=== PATIENT | female | born 1960 | race Caucasian/White ===

== ENCOUNTER 2018-01-23 12:49 | Inpatient (IN) | payer MEDICAID ==
[2018-01-23] MEDS ORDERED: Lactated Ringers 1,000 ML IV SCH (14:00)
[2018-01-23] MEDS ORDERED: Sodium Chloride 0.9% 10 ML Syringe FLUSH PRN (14:00)
[2018-01-23] MEDS ORDERED: Ondansetron 4 MG/2 ML SDV IVPUSH ONE (14:01)
[2018-01-23] MEDS ORDERED: fentaNYL 100 MCG/2 ML SDV IVPUSH ONE (14:01)
--- NOTE | 2018-01-23 14:04 | EDM.PDOC ---
ED HPI GENERAL MEDICAL PROBLEM - General Chief Complaint: Gastrointestinal Problem Stated Complaint: vomiting back PAIN Time Seen by Provider: 01/23/18 13:47 Source of Information: Reports: Patient, Family, RN Notes Reviewed History Limitations: Reports: No Limitations - History of Present Illness INITIAL COMMENTS - FREE TEXT/NARRATIVE: 57-year-old female presents to the emergency department day complaint of nausea vomiting and diarrhea, states she's been ill for about 2 weeks initially started with diarrhea multiple loose stools per day which has not improved vomiting started over the last couple of days denies any fevers shortness of breath or chest pain has not taken anything denies any travel or new foods - Related Data Allergies Allergy/AdvReac Type Severity Reaction Status Date / Time iodine Allergy Cannot Verified 02/09/14 14:02 Remember venom-honey bee Allergy Anaphylactic Verified 02/09/14 14:02 [bee venom (honey bee)] Shock horse fly Allergy Swelling Uncoded 01/23/18 13:07 leechs Allergy Swelling Uncoded 01/23/18 13:07 Home Meds: Home Meds Cholecalciferol (Vitamin D3) [Vitamin D] 2,000 unit PO DAILY 02/09/14 [History] Gabapentin 300 mg PO DAILY 02/09/14 [History] Ibuprofen 600 mg PO DAILY PRN 02/09/14 [History] Levothyroxine [Synthroid] 100 mg PO DAILY 02/09/14 [History] Lisinopril 40 mg PO DAILY 02/09/14 [History] atorvaSTATin [Lipitor] 40 mg PO BEDTIME 02/09/14 [History] DULoxetine HCl [Duloxetine HCl] 1 tab PO DAILY 01/23/18 [History] EPINEPHrine [Epinephrine] 1 injection SQ DAILY 01/23/18 [History] Naproxen 1 tab PO DAILY 01/23/18 [History] Triamterene/Hydrochlorothiazid [Triamterene-HCTZ 37.5-25 MG] 1 tab PO DAILY [History] predniSONE [Prednisone] 20 mg PO DAILY PRN 01/23/18 [History] traZODone HCl [Trazodone HCl] 1 tab PO DAILY 01/23/18 [History] Past Medical History Cardiovascular History: Reports: High Cholesterol, Hypertension Gastrointestinal History: Reports: Irritable Bowel Syndrome Musculoskeletal History: Reports: Fracture Neurological History: Reports: Other (See Below) Other Neuro History: restless leg syndrome, Psychiatric History: Reports: Dementia Endocrine/Metabolic History: Reports: Hypothyroidism Immunologic History: Reports: Other (See Below) Other Immunologic History: mark - Infectious Disease History Infectious Disease History: Reports: Chicken Pox - Past Surgical History HEENT Surgical History: Reports: Eye Surgery, LASIK GI Surgical History: Reports: Colonoscopy Female Surgical History: Reports: Section, Hysterectomy Social & Family History - Tobacco Use Smoking Status *Q: Current Every Day Smoker Years of Tobacco use: 40 Packs/Tins Daily: 1 - Caffeine Use Caffeine Use: Reports: Coffee - Recreational Drug Use Recreational Drug Use: No ED ROS GENERAL - Review of Systems Review Of Systems: See Below Constitutional: Reports: Fatigue. Denies: Fever HEENT: Reports: No Symptoms Respiratory: Reports: No Symptoms Cardiovascular: Reports: No Symptoms GI/Abdominal: Reports: Abdominal Pain, Diarrhea, Nausea, Vomiting : Reports: No Symptoms Musculoskeletal: Reports: No Symptoms Skin: Reports: No Symptoms Neurological: Reports: No Symptoms ED EXAM, GI/ABD - Physical Exam Exam: See Below Text/Narrative:: General: Female, not in any distress, alert and oriented x3 HEENT: head is atraumatic normocephalic, eyes pupils equal round reactive to light, sclera clear no conjunctivitis appreciated. Ears tympanic membranes clear and cowart landmarks and light reflex are present bilaterally canals are clear. Nose no septal deviation, nares are clear, no blood present. Mouth mucosa is moist and pink no erythema or exudate noted in soft palate, tongue is midline uvula is midline, dentition is intact. Neck: Supple no thyromegaly no tracheal deviation. Nodes: Cervical nodes subclavicular nodes nontender no palpable lymphadenopathy noted. Lungs: clear to auscultation bilaterally with symmetrical respirations, no adventitious noise appreciated. CV: Regular rate and rhythm S1 and S2 appreciated no murmurs rubs or gallops noted. Abdomen: Soft, generalized tenderness to palpation, no palpable masses or organomegaly appreciated, no distention no guarding bowel sounds are present, surgical scar is clean dry and intact. Neuro: Cranial nerves II through XII grossly intact Skin: Warm and dry, intact Extremities: No lower extremity edema appreciated, pedal pulse is +2. Course - Vital Signs Last Recorded V/S: Last Vital Signs Temp 98.2 F 01/23/18 13:42 Pulse 92 01/23/18 13:42 Resp 16 01/23/18 13:42 BP 147/89 H 01/23/18 13:42 Pulse Ox 100 01/23/18 13:42 - Orders/Labs/Meds Orders: Active Orders 24 hr Category Date Time Status Peripheral IV Care [RC] . DIRECTED Care 01/23/18 14:01 Active CLOSTRIDIUM DIFFICILE BY PCR [RM] Stat Lab 01/23/18 12:54 Ordered UA W/MICROSCOPIC [URIN] Urgent Lab 01/23/18 12:54 Ordered WBC, STOOL [OP] Stat Lab 01/23/18 12:54 Ordered Lactated Ringers [Ringers, Lactated] 1,000 ml Med 01/23/18 14:00 Active IV ASDIRECTED Sodium Chloride 0.9% [Saline Flush] Med 01/23/18 14:00 Active 10 ml FLUSH ASDIRECTED PRN Peripheral IV Insertion Adult [OM.PC] Urgent Oth 01/23/18 14:00 Ordered Medication Orders Lactated Ringer's (Ringers, Lactated) 1,000 mls @ 999 mls/hr IV ASDIRECTED KVNG Sodium Chloride (Saline Flush) 10 ml FLUSH ASDIRECTED PRN PRN Reason: Keep Vein Open Labs: Laboratory Tests 01/23/18 01/23/18 01/23/18 Range/Units 14:00 14:00 14:00 WBC 12.6 H (4.5-11.0) K/uL RBC 4.66 (3.30-5.50) M/uL Hgb 14.5 (12.0-15.0) g/dL Hct 41.6 (36.0-48.0) % MCV 89 (80-98) fL MCH 31 (27-31) pg MCHC 35 (32-36) % Plt Count 275 (150-400) K/uL Neut % (Auto) 75 H (36-66) % Lymph % (Auto) 17 L (24-44) % [place] % (Auto) 8 H (2-6) % Eos % (Auto) 0 L (2-4) % Baso % (Auto) 1 (0-1) % Sodium 136 L (140-148) mmol/L Potassium 4.0 (3.6-5.2) mmol/L Chloride 98 L (100-108) mmol/L Carbon Dioxide 26 (21-32) mmol/L Anion Gap 16.0 H (5.0-14.0) mmol/L BUN 13 D (7-18) mg/dL Creatinine 0.9 (0.6-1.0) mg/dL Est Cr Clr Drug Dosing 52.67 mL/min Estimated GFR (MDRD) > 60 (>60) Glucose 101 (74-106) mg/dL Lactic Acid 1.3 (0.4-2.0) mmol/L Calcium 8.8 (8.5-10.1) mg/dL Total Bilirubin 0.4 (0.2-1.0) mg/dL AST 28 (15-37) U/L ALT 26 (12-78) U/L Alkaline Phosphatase 70 (46-116) U/L Total Protein 7.2 (6.4-8.2) g/dL Albumin 3.5 (3.4-5.0) g/dL Globulin 3.7 H (2.3-3.5) g/dL Albumin/Globulin Ratio 1.0 L (1.2-2.2) Meds: Medications Generic Name Dose Route Start Last Admin Trade Name Freq PRN Reason Stop Dose Admin Lactated Ringer's 1,000 mls @ 999 mls/hr 01/23/18 14:00 Ringers, Lactated IV ASDIRECTED KVNG Sodium Chloride 10 ml 01/23/18 14:00 Saline Flush FLUSH ASDIRECTED PRN Keep Vein Open Discontinued Medications Generic Name Dose Route Start Last Admin Trade Name Freq PRN Reason Stop Dose Admin Fentanyl 50 mcg 01/23/18 14:01 Sublimaze IVPUSH 01/23/18 14:02 ONETIME ONE Ondansetron HCl 4 mg 01/23/18 14:01 Zofran IVPUSH 01/23/18 14:02 ONETIME ONE Departure - Departure Time of Disposition: 15:03 Disposition: Admitted As Inpatient 67 Condition: Good Clinical Impression: Appendicitis - Discharge Information Referrals: Tamera Dang MD [Primary Care Provider] - Forms: ED Department Discharge - My Orders Last 24 Hours: My Active Orders 01/23/18 12:54 CLOSTRIDIUM DIFFICILE BY PCR [RM] Stat UA W/MICROSCOPIC [URIN] Urgent WBC, STOOL [OP] Stat 01/23/18 14:00 Lactated Ringers [Ringers, Lactated] 1,000 ml IV ASDIRECTED Sodium Chloride 0.9% [Saline Flush] 10 ml FLUSH ASDIRECTED PRN Peripheral IV Insertion Adult [OM.PC] Urgent 01/23/18 14:01 Peripheral IV Care [RC] . DIRECTED - Assessment/Plan Last 24 Hours: My Active Orders 01/23/18 12:54 CLOSTRIDIUM DIFFICILE BY PCR [RM] Stat UA W/MICROSCOPIC [URIN] Urgent WBC, STOOL [OP] Stat 01/23/18 14:00 Lactated Ringers [Ringers, Lactated] 1,000 ml IV ASDIRECTED Sodium Chloride 0.9% [Saline Flush] 10 ml FLUSH ASDIRECTED PRN Peripheral IV Insertion Adult [OM.PC] Urgent 01/23/18 14:01 Peripheral IV Care [RC] . DIRECTED Plan: Assessment Acuity = acute Site and laterality = acute appendicitis Etiology = unclear etiology Manifestations = nausea vomiting, diarrhea Location of injury = Home Lab values = WBC elevated at 12.6 consistent with leukocytosis, CMP unremarkable , lactic acid within normal limits CT scan describes acute appendicitis above Plan Called discussed case with Dr. Brayan Baumann general surgery kindly agreed, and evaluate the patient emergency department for surgical intervention This note was dictated using [employer] voice recognition software please call with any questions on syntax or grammar.
--- NOTE | 2018-01-23 14:57 | CT ---
Abdomen pelvis CT. History: Generalized abdominal pain. Technique: Unenhanced axial images were obtained from the lung bases extending through the abdomen an d pelvis. Coronal images were reconstructed. Auto dosage reduction and iterative reconstruction techn iques were employed. Comparison: 2013. Findings: Limited evaluation of the lower lung chen demonstrates no abnormalities. The study is limited due to the lack of contrast. The appendix is demonstrated in a retrocecal location extending superiorly within the right paracolic gutter terminating at the inferior margin of the liver. The appendix is dilated. There is wall thick ening. There is induration of the fat adjacent to the appendix. The findings are consistent with acut e appendicitis. There is no evidence for perforation or abscess. The liver, gallbladder, pancreas, spleen are unremarkable. The adrenal glands are normal in size. The kidneys demonstrate no hydronephrosis. There are scattered colonic diverticula. There is no wall thi ckening or inflammation. There are no skeletal lesions. Impression: 1. Acute inflammation of a retrocecal appendix. No evidence of perforation or abscess.
[2018-01-23] MEDS ORDERED: Ampicillin/Sulbactam Na 3 GM in Sodium Chloride 0.9% 100 ML IV ONE ×2 (15:12→16:00)
[2018-01-23] MEDS ORDERED: Bupivacaine 0.5%/EPINEPHrine 1:200,000 50 ML MDV ONE (15:25)
[2018-01-23] MEDS ORDERED: Glycopyrrolate 0.2 MG/ML 5 ML MDV ONE (15:57)
[2018-01-23] MEDS ORDERED: Dexamethasone 4 MG/ML SDV ONE (15:57)
[2018-01-23] MEDS ORDERED: Ondansetron 4 MG/2 ML SDV ONE (15:57)
[2018-01-23] MEDS ORDERED: Neostigmine Methylsulfate 1 MG/ML 5 ML Syringe ONE (15:57)
[2018-01-23] MEDS ORDERED: Rocuronium 50 MG/5 ML Vial ONE (15:57)
[2018-01-23] MEDS ORDERED: Propofol 200 MG/20 ML SDV ONE (15:57)
[2018-01-23] MEDS ORDERED: Succinylcholine 200 MG/10 ML MDV ONE (15:57)
[2018-01-23] MEDS ORDERED: Ropivacaine 25 ML, Dexamethasone 8 MG, EPINEPHrine 0.4 MG, Sodium Chloride 0.9% 52.6 ML NERVRT SCH ×4 (16:00)
[2018-01-23] MEDS ORDERED: Ketamine 500 MG/5 ML MDV IV SCH (16:00)
[2018-01-23] MEDS ORDERED: fentaNYL 250 MCG/5 ML SDV ONE ×2 (16:01→16:31)
[2018-01-23] MEDS ORDERED: HYDROmorphone/Normal Saline 15 MG/30 ML PCA IV PRN (16:04)
[2018-01-23] MEDS ORDERED: Naloxone 0.4 MG/ML SDV IV PRN (16:04)
[2018-01-23] MEDS ORDERED: Scopolamine 1.5 MG Transdermal Patch ONE (16:10)
[2018-01-23] MEDS ORDERED: Lactated Ringers 1,000 ML ONE (17:10)
[2018-01-23] MEDS ORDERED: Meropenem 500 MG SDV ONE (17:29)
[2018-01-23] MEDS ORDERED: hydrOXYzine HCl 100 MG/2 ML SDV ONE (18:27)
[2018-01-23] MEDS ORDERED: Labetalol 20 MG/4 ML Syringe IVPUSH ONE (19:05)
[2018-01-23] MEDS ORDERED: Labetalol 20 MG/4 ML Syringe ONE (19:10)
[2018-01-23] MEDS ORDERED: Cyclobenzaprine 10 MG Tab PO PRN (20:23)
[2018-01-23] MEDS ORDERED: hydrOXYzine HCl 100 MG/2 ML SDV IM PRN (20:23)
[2018-01-23] MEDS ORDERED: HYDROmorphone/Normal Saline 15 MG/30 ML PCA IV SCH ×2 (20:30→20:39)
[2018-01-23] MEDS: Ampicillin/Sulbactam Na 3 GM in Sodium Chloride 0.9% 100 ML IV SCH (20:59)
[2018-01-23] MEDS: Pantoprazole 40 MG Vial IVPUSH SCH (21:04)
[2018-01-24] MEDS: Dextrose 5%-Lactated Ringers 1,000 ML IV SCH ×3 (00:09→15:29)
[2018-01-24] MEDS: Ondansetron 4 MG/2 ML SDV IVPUSH PRN ×2 (01:27→11:31)
[2018-01-24] MEDS: Ampicillin/Sulbactam Na 3 GM in Sodium Chloride 0.9% 100 ML IV SCH ×4 (03:56→22:12)
[2018-01-24] MEDS ORDERED: EPINEPHRINE SQ SCH (09:00)
[2018-01-24] MEDS ORDERED: Non-Formulary Medication 1 Each (Lisinopril [Lisinopril] 40 MG) PO SCH (09:00)
[2018-01-24] MEDS ORDERED: DULOXETINE HCL PO SCH (09:00)
[2018-01-24] MEDS: Magnesium Sulfate/Water 2 GM in Premix Bag 1 BAG IV SCH ×3 (09:02→19:50)
[2018-01-24] MEDS: Lisinopril 20 MG Tab PO SCH (09:06)
[2018-01-24] MEDS: Gabapentin 300 MG Cap PO SCH (09:07)
[2018-01-24] MEDS: Hydrochlorothiazide/Triamterene 25-37.5 Tab PO SCH (09:07)
[2018-01-24] MEDS: DULoxetine 20 MG Cap PO SCH (09:07)
[2018-01-24] MEDS: CHECK SCOPOLAMINE PATCH DAILY TRDERM SCH (09:07)
--- NOTE | 2018-01-24 10:29 | PN ---
DATE OF SERVICE: 01/24/2018 SUBJECTIVE: Mayr is postop day #1. She reports her pain is controlled. Vital signs have been stable. Blood sugar this morning was 242. White count 14.3. She does report her pain is controlled. She has been resting comfortably. CECILIA put out 225 and her Cervantes catheter put out 829. REVIEW OF SYSTEMS: Remainder of review of systems negative for any pertinent positives and negatives. OBJECTIVE: GENERAL: Mary is a 57-year-old female, alert and orientated. VITAL SIGNS: TPR 99.6, 94, 16. Blood pressure 174/75. HEENT: Negative. NECK: Supple. HEART: Regular rate and rhythm. LUNGS: Clear. ABDOMEN: Dressings dry and intact. CECILIA drain intact. Cervantes catheter is draining clear jacqui urine. EXTREMITIES: Without peripheral edema. SCDs are on. ASSESSMENT: Exploratory laparoscopy turned to laparotomy with lysis of extensive adhesions, right colon resection, distal small bowel resection, repair over deserosalization of urinary bladder, drainage of pericolonic abscess, and mobilization of omentum into pelvis, for right- sided colitis with extensive retroperitoneal inflammation involving appendix, dense adhesions distal to the small bowel to pelvic sidewall and urinary bladder, pelvic abscess. Surgeon, Brayan Baumann M.D. Date of surgery, 01/23/2018. PLAN: 1. Lipitor 40 mg p.o. at bedtime. 2. Duloxetine 40 mg daily. 3. Epinephrine 0.15 mg pen 1 injection subcu daily. This will be clarified with pharmacy and the patient. 4. Gabapentin 300 mg p.o. daily. 5. Levothyroxine 100 mcg p.o. daily. 6. Lisinopril 40 mg p.o. daily. 7. Trazodone 50 mg p.o. daily. 8. Triamterene/hydrochlorothiazide 37.5/25 mg 1 tablet p.o. daily. 9. Check C. diff on stool. 10.Schedule and have consent signed for delayed primary closure, IV local sedation with TAP block on 01/27/2018; Brayan Baumann M.D., at around 1500 hours, n.p.o. starting Sunday01/27/2018 at 2:00 a.m. 11.Decrease IV of D5LR to 100 mL per hour at noon. 12.Magnesium 2 g IV q.6 hours. 13.Blood sugar this morning was 223. We will check hemoglobin A1c today on the blood that has already been drawn. 14.Good pulmonary toilet. 15.We will evaluate p.r.n. or in the a.m. Saray Hernandez PA-C /[id number]
[2018-01-24] MEDS ORDERED: Glucose Gel 15 GM in 37.5 GM Tube PO PRN (11:31)
[2018-01-24] MEDS ORDERED: Glucagon,Human Recombinant 1 MG Vial IM PRN (11:31)
[2018-01-24] MEDS ORDERED: 50% Dextrose in Water 50 ML Syringe IVPUSH PRN (11:31)
[2018-01-24] MEDS ORDERED: Non-Formulary Medication 1 Each SCH (15:00)
[2018-01-24] MEDS: Levothyroxine 100 MCG Tab PO SCH (15:28)
[2018-01-24] MEDS: Insulin Aspart 100 Units/ML 3 ML Pen SUBCUT SCH ×2 (17:14→22:09)
[2018-01-24] MEDS: atorvaSTATin 20 MG Tab PO SCH (20:37)
[2018-01-24] MEDS: traZODone 50 MG Tab PO SCH (20:37)
[2018-01-24] MEDS: Pantoprazole 40 MG Vial IVPUSH SCH (20:37)
[2018-01-25] MEDS: Magnesium Sulfate/Water 2 GM in Premix Bag 1 BAG IV SCH ×4 (01:55→19:42)
[2018-01-25] MEDS: Dextrose 5%-Lactated Ringers 1,000 ML IV SCH ×2 (01:59→14:15)
[2018-01-25] MEDS: Ampicillin/Sulbactam Na 3 GM in Sodium Chloride 0.9% 100 ML IV SCH ×4 (04:05→22:04)
[2018-01-25] MEDS: Insulin Aspart 100 Units/ML 3 ML Pen SUBCUT SCH ×4 (04:09→22:03)
--- NOTE | 2018-01-25 08:12 | PN ---
DATE OF SERVICE: 01/25/2018 SUBJECTIVE: Mary has been a little bit confused throughout the night. Vital signs have been stable. Afebrile. Oral intake, ice chips, at 240 total in. She remains to have her Cervantes catheter in and put out 1260 of a clear jacqui urine. CECILIA drain put out 170 mL of a pink serosanguineous drainage. She is very sleepy today. She nods her head saying pain is controlled. REVIEW OF SYSTEMS: Remainder of review of systems negative for any pertinent positives and negatives. OBJECTIVE: GENERAL: Mary is a 57-year-old female, very sleepy this morning. VITAL SIGNS: TPR is 98.6, 84, 15. Blood pressure 137/95. HEENT: Negative. NECK: Supple. HEART: Regular rate and rhythm. LUNGS: Clear. ABDOMEN: Dressings dry and intact. CECILIA drain intact. Abdominal binder is on. EXTREMITIES: Without peripheral edema and SCDs are on. ASSESSMENT: Exploratory laparoscopy turned to laparotomy with lysis of extensive adhesions, right colon resection, distal small bowel resection, repair of deserosalization of urinary bladder, drainage of pericolonic abscess, and mobilization of omentum into pelvis, for right- sided colitis with extensive retroperitoneal inflammation involving appendix, dense adhesions distal to the small bowel to pelvic sidewall and urinary bladder, pelvic abscess. Surgeon, Brayan Baumann M.D. Date of surgery, 01/23/2018. PLAN: 1. Discontinue Cervantes catheter. 2. Encourage ambulation. 3. Check CBC, CMP, phos, and BNP in the a.m. 4. We will evaluate p.r.n. or in the a.m. Saray Hernandez PA-C /[id number]
[2018-01-25] MEDS: CHECK SCOPOLAMINE PATCH DAILY TRDERM SCH (08:31)
[2018-01-25] MEDS: Gabapentin 300 MG Cap PO SCH (08:32)
[2018-01-25] MEDS: DULoxetine 20 MG Cap PO SCH (08:32)
[2018-01-25] MEDS: Lisinopril 20 MG Tab PO SCH (08:32)
[2018-01-25] MEDS: Levothyroxine 100 MCG Tab PO SCH (09:12)
[2018-01-25] MEDS: Hydrochlorothiazide/Triamterene 25-37.5 Tab PO SCH (09:13)
[2018-01-25] MEDS: Pantoprazole 40 MG Vial IVPUSH SCH (19:42)
[2018-01-25] MEDS: atorvaSTATin 20 MG Tab PO SCH (20:23)
[2018-01-25] MEDS: traZODone 50 MG Tab PO SCH (22:33)
[2018-01-26] MEDS: Magnesium Sulfate/Water 2 GM in Premix Bag 1 BAG IV SCH ×4 (01:30→20:47)
[2018-01-26] MEDS: Ampicillin/Sulbactam Na 3 GM in Sodium Chloride 0.9% 100 ML IV SCH ×4 (04:26→22:55)
[2018-01-26] MEDS: Insulin Aspart 100 Units/ML 3 ML Pen SUBCUT SCH ×4 (04:52→22:12)
[2018-01-26] MEDS ORDERED: Potassium Chloride 40 MEQ in Premix Bag 1 BAG IV ONE (07:26)
[2018-01-26] MEDS ORDERED: LORazepam 2 MG/ML SDV IVPUSH PRN (07:35)
[2018-01-26] MEDS: Levothyroxine 100 MCG Tab PO SCH (08:13)
--- NOTE | 2018-01-26 08:59 | PN ---
DATE OF SERVICE: 01/26/2018 SUBJECTIVE: Mary reports her pain is controlled. Vital signs have been stable. She had a temperature max of 99.7. She has been up during the night several times. Voiding around 100 mL per hour. Oral intake 800. Urine output is 1600. CECILIA drain put out 140 mL of a light pink serosanguineous drainage. Nursing felt she had an increase anxiety. Mary concerned about having cancer. Her significant other for several years, Jose Carlos Blanco had esophageal cancer, in November of 2016. Her dad from colon cancer and mom had anal polyps which became cancerous. Mary diet is ordered as clear liquids from kitchen. She has been consuming pudding applesauce without difficulty and is not passing any flatus. LABORATORY DATA: Hemoglobin 11.6, potassium 3.4, glucose 121. BNP 260. Urine was negative. Abdominal fluid drainage showed E. coli and no growth after 3 days. She is on Unasyn. REVIEW OF SYSTEMS: Remainder of review of systems negative for any pertinent positives and negatives. OBJECTIVE: GENERAL: Mary Becerra is a 57-year-old female. She is alert and orientated. VITAL SIGNS: TPR 99.7, 88, 16. Blood pressure 100/57. HEENT: Negative. NECK: Supple. HEART: Regular rate and rhythm. LUNGS: Clear. ABDOMEN: Dressings dry and intact. CECILIA drain intact. Abdominal binder is on. EXTREMITIES: SCDs are on. There is no peripheral edema. ASSESSMENT: Exploratory laparoscopy turned to laparotomy with lysis of extensive adhesions, right colon resection, distal small bowel resection, repair deserosalization of urinary bladder and drainage of pericolonic abscess, and mobilization of omentum into pelvis for right-sided colitis with extensive retroperitoneal inflammation involving appendix, dense adhesions distal to the small bowel to pelvic sidewall and urinary bladder and pelvic abscess. Surgeon, Brayan Baumann MD. Date of surgery 01/23/2018. PLAN: 1. Check UA and UC. 2. Bladder scan after voiding. 3. KCl 40 mEq IV today for a low potassium. 4. Clear liquid diet from no tray line to give clear liquids from kitchenette. 5. No pudding applesauce or foods from full liquid diet. 6. Increase trazodone to order to read to give between 50 and 100 mg at bedtime. 7. Ativan 0.5 mg IV q.4 hours p.r.n. anxiety. 8. A delayed primary closure with IV local and TAP block ordered for Sunday01/27/2018 at approximately 1400 to 1300. She is to be n.p.o. after 0200 hours on 01/27/2018. Orders were previously written. 9. Good pulmonary toilet. 10.We will evaluate p.r.n. or in a.m. Saray Hernandez PA-C /[id number]
[2018-01-26] MEDS: DULoxetine 20 MG Cap PO SCH (10:21)
[2018-01-26] MEDS: Gabapentin 300 MG Cap PO SCH (10:21)
[2018-01-26] MEDS: Hydrochlorothiazide/Triamterene 25-37.5 Tab PO SCH (10:21)
[2018-01-26] MEDS: Lisinopril 20 MG Tab PO SCH (10:22)
[2018-01-26] MEDS: Tamsulosin 0.4 MG Cap.ER PO SCH ×2 (10:24→16:37)
[2018-01-26] MEDS: CHECK SCOPOLAMINE PATCH DAILY TRDERM SCH (10:25)
[2018-01-26] MEDS: Potassium Chloride 20 MEQ, Lidocaine 1% 2 ML in Sodium Chloride 0.9% 100 ML IV SCH ×2 (11:32→13:45)
[2018-01-26] MEDS: Dextrose 5%-Lactated Ringers 1,000 ML IV SCH ×2 (12:38→22:05)
[2018-01-26] MEDS: Pantoprazole 40 MG Tab.CR PO SCH (15:41)
[2018-01-26] MEDS ORDERED: Scopolamine 1.5 MG Transdermal Patch TOP SCH (16:00)
[2018-01-26] MEDS: atorvaSTATin 20 MG Tab PO SCH (20:48)
[2018-01-26] MEDS: traZODone 50 MG Tab PO SCH (22:05)
[2018-01-27] MEDS: Magnesium Sulfate/Water 2 GM in Premix Bag 1 BAG IV SCH (03:21)
[2018-01-27] MEDS: Insulin Aspart 100 Units/ML 3 ML Pen SUBCUT SCH ×4 (04:15→23:09)
[2018-01-27] MEDS: Ampicillin/Sulbactam Na 3 GM in Sodium Chloride 0.9% 100 ML IV SCH ×3 (05:27→21:33)
[2018-01-27] MEDS ORDERED: Potassium Chloride 20 MEQ in Premix Bag 1 BAG IV ONE (06:52)
--- NOTE | 2018-01-27 07:22 | PN ---
DATE OF SERVICE: 01/27/2018 SUBJECTIVE: Mary is postop day 4. She was having difficulty urinating small amounts. Bladder catheterization was done at 300. Mary opted not to have a Cervantes catheter, so she wanted to try Flomax first and she started voiding anywhere from 300 to 500 mL at a time. Has had multiple BMs. Unable to collect for Clostridium difficile. Some have been because of incontinence. Has been n.p.o. since 0200. 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 She received trazodone 100 mg and Vistaril. Temperature max in the past 24 hours, 100.6. She has been ambulating frequently and using her incentive spirometer. Oral intake on a clear liquid diet until 0200, 1200. Urine output 4675. CECILIA drain put out 185 mL of a light pink serous drainage. Pain has been controlled. REVIEW OF SYSTEMS: Remainder of review of systems negative for any pertinent positives or negatives. OBJECTIVE: GENERAL: Mary Spencer is a pleasant 57-year-old female. She is alert and orientated, lying in bed. VITAL SIGNS: TPR is 99.3, 88, 18, blood pressure 147/78. HEENT: Negative. NECK: Supple. HEART: Regular rate and rhythm. LUNGS: Clear. ABDOMEN: Dressings dry and intact. Abdominal binder is on. CECILIA drain intact as above. EXTREMITIES: SCDs are on. There is no peripheral edema. ASSESSMENT: Exploratory laparoscopy turned to laparotomy with lysis of extensive adhesions, right colon resection, distal small bowel resection, repair of deserosalization of bowel to urinary bladder and drainage of pericolonic abscess. Mobilization of omentum into pelvis for; 1. Right-sided colitis with extensive retroperitoneal inflammation involving the appendix. 2. Dense adhesions distal small bowel to pelvic sidewall and urinary bladder. 3. Pelvic abscess. Surgeon: Brayan Baumann MD. Date of surgery; 01/23/2018. PLAN: 1. Remain n.p.o. for delayed primary closure at approximately 1400 to 1300 today. 2. Check CBC, CMP, magnesium, and phosphorus in a.m. 3. KCl 20 mEq with lidocaine IV today. 4. Reminder to check Clostridium difficile. Orders already placed on loose stool. 5. Good pulmonary toilet. 6. Orders to be written post delayed primary closure. Saray Hernandez PA-C /[id number]
[2018-01-27] MEDS: DULoxetine 20 MG Cap PO SCH (08:14)
[2018-01-27] MEDS: Gabapentin 300 MG Cap PO SCH (08:14)
[2018-01-27] MEDS: Levothyroxine 100 MCG Tab PO SCH (08:14)
[2018-01-27] MEDS: Tamsulosin 0.4 MG Cap.ER PO SCH ×2 (08:14→17:01)
[2018-01-27] MEDS: Lisinopril 20 MG Tab PO SCH (08:15)
[2018-01-27] MEDS: Hydrochlorothiazide/Triamterene 25-37.5 Tab PO SCH (08:15)
[2018-01-27] MEDS: Dextrose 5%-Lactated Ringers 1,000 ML IV SCH ×2 (08:16→16:12)
[2018-01-27] MEDS ORDERED: Potassium Chloride 20 MEQ, Lidocaine 1% 2 ML in Sodium Chloride 0.9% 100 ML IV ONE (08:30)
[2018-01-27] MEDS ORDERED: Acetaminophen 1,000 MG in Premix Bag 1 BAG IV ONE (13:15)
[2018-01-27] MEDS ORDERED: Meropenem 500 MG SDV ONE (13:47)
[2018-01-27] MEDS ORDERED: Bupivacaine 0.5% 50 ML MDV ONE (13:47)
[2018-01-27] MEDS ORDERED: Lidocaine 1% with EPINEPHrine 1:100,000 50 ML MDV ONE (13:47)
[2018-01-27] MEDS ORDERED: Ropivacaine 25 ML, Dexamethasone 8 MG, EPINEPHrine 0.4 MG, Sodium Chloride 0.9% 52.6 ML NERVRT SCH ×4 (14:00)
[2018-01-27] MEDS ORDERED: fentaNYL 100 MCG/2 ML SDV ONE (14:32)
[2018-01-27] MEDS ORDERED: Propofol 200 MG/20 ML SDV ONE (14:32)
[2018-01-27] MEDS: Pantoprazole 40 MG Tab.CR PO SCH (17:01)
[2018-01-27] MEDS: atorvaSTATin 20 MG Tab PO SCH (21:59)
[2018-01-27] MEDS: traZODone 50 MG Tab PO SCH (21:59)
[2018-01-27] MEDS: Lactobacillus Rhamnosus GG (Probiotic) Cap PO SCH (22:02)
[2018-01-28] MEDS: Insulin Aspart 100 Units/ML 3 ML Pen SUBCUT SCH ×5 (05:41→21:59)
[2018-01-28] MEDS ORDERED: Magnesium Sulfate/Water 2 GM in Premix Bag 1 BAG IV SCH (07:00)
--- NOTE | 2018-01-28 07:41 | PN ---
DATE OF SERVICE: 01/28/2018 SUBJECTIVE: Mary is postop day 5 with delayed primary closure yesterday. Magnesium was 1.3, glucose 161. She has been up ambulating, tolerated a full liquid diet, has had 2 stools. C. diff was negative. Temp max of 101.3 early afternoon yesterday. She was given Tylenol 1 g IV prior to her delayed primary closure and her temp decreased to 97.3. REVIEW OF SYSTEMS: Remainder of review of systems negative for any pertinent positives and negatives. OBJECTIVE: GENERAL: Mary Becerra is a pleasant 57-year-old female. VITAL SIGNS: TPR 99.6, 90, 18. Blood pressure 127/70. HEENT: Negative. NECK: Supple. HEART: Regular rate and rhythm. LUNGS: Clear. ABDOMEN: Dressings dry and intact. She has 4x4s over her former CECILIA drain. Aquacel dressing on. Abdominal binder is on. EXTREMITIES: Without peripheral edema. ASSESSMENT: Exploratory laparoscopy turned to laparotomy with lysis of extensive adhesions, right colon resection, distal small bowel resection, repair of deserosalization of bowel to urinary bladder and drainage of pericolonic abscess, mobilization of omentum into pelvis for: 1. Right-sided colitis with extensive retroperitoneal inflammation involving the appendix. 2. Dense adhesions distal small bowel to pelvic sidewall and urinary bladder. 3. Pelvic abscess. Surgeon: Brayan Baumann MD. Date of surgery 01/23/2018. 4. Delayed primary closure 01/27/2018. Surgeon: Brayan Baumann MD. 5. Hypomagnesium. PLAN: 1. Magnesium 2 g IV q.6 hours x 72 hours. 2. May shower leaving Aquacel dressing on. 3. Regular diet. 4. Tylenol 1000 mg p.o. q.4 hours p.r.n. pain and fever. 5. DC D[employer]IC. 6. DC continuous pulse ox. 7. Dilaudid 2 mg 1 to 2 every 4 hours p.r.n. pain. 8. Zofran ODT 4 mg q.4 hours p.r.n. nausea, vomiting. 9. DC full liquid diet. 10.Regular diet. 11.Good pulmonary toilet. 12.We will evaluate p.r.n. or in a.m. Saray Hernandez PA-C /[id number]
[2018-01-28] MEDS: Levothyroxine 100 MCG Tab PO SCH (08:19)
[2018-01-28] MEDS: Lactobacillus Rhamnosus GG (Probiotic) Cap PO SCH ×2 (08:20→20:43)
[2018-01-28] MEDS: Hydrochlorothiazide/Triamterene 25-37.5 Tab PO SCH (08:21)
[2018-01-28] MEDS: Gabapentin 300 MG Cap PO SCH (08:21)
[2018-01-28] MEDS: Magnesium Sulfate/Water 2 GM in Premix Bag 1 BAG IV SCH ×3 (08:21→20:43)
[2018-01-28] MEDS: Tamsulosin 0.4 MG Cap.ER PO SCH ×2 (08:22→17:22)
[2018-01-28] MEDS: Lisinopril 20 MG Tab PO SCH (08:22)
[2018-01-28] MEDS: DULoxetine 20 MG Cap PO SCH (08:23)
[2018-01-28] MEDS: HYDROmorphone 2 MG Tab PO PRN ×4 (09:34→21:58)
[2018-01-28] MEDS: Dextrose 5%-Lactated Ringers 1,000 ML IV SCH ×2 (11:53→21:57)
[2018-01-28] MEDS: Pantoprazole 40 MG Tab.CR PO SCH (16:09)
[2018-01-28] MEDS: atorvaSTATin 20 MG Tab PO SCH (20:43)
[2018-01-28] MEDS: traZODone 50 MG Tab PO SCH (20:44)
[2018-01-28] MEDS: Acetaminophen 500 MG Tab PO PRN (21:58)
--- NOTE | 2018-01-28 22:44 | OR ---
DATE OF PROCEDURE: 01/23/2018 PREOPERATIVE DIAGNOSIS: Probable acute appendicitis. POSTOPERATIVE DIAGNOSES: 1. Right-sided colitis with extensive retroperitoneal inflammation (including appendix). 2. Dense confluent adhesions between distal small bowel and pelvic sidewall and urinary bladder. 3. Pericolonic abscess. OPERATIVE PROCEDURES: Exploratory laparoscopy followed by conversion to laparotomy with lysis of extensive adhesions and; 1. Right colon resection (93293). 2. Distal small bowel resection (19407). 3. Closure of area of deserosalization of the urinary bladder (19047). 4. Drainage of pericolonic abscess (62425). 5. Mobilization of the omentum into pelvis to limit recurrent adhesion formation between pelvic structures and adjacent viscera (80230). ANESTHESIA: General. INDICATION FOR PROCEDURE: A 57-year-old female presenting with a 2-week history of frequent loose bowel movements or diarrhea and increasing abdominal pain. The pain now is somewhat more on the right, where previously it had been more diffuse across the mid and lower abdomen. A CT scan was obtained as part of workup, was suggestive of an acute appendicitis. The plan is to proceed with a diagnostic laparoscopy with laparotomy if necessary and procedures as indicated. The patient is aware that she has a somewhat atypical presentation, and there may be more to the picture than simply appendicitis, which might require more of an extensive procedure. The potential risks per se including bleeding, infection, leaks from various GI tract closures, as well as the possibility of injury to the adjacent viscera such as ureters and other viscera, along with the remote possibility of cardiopulmonary, septic, or hemorrhagic complications leading to were all discussed, and the patient wishes to proceed. DETAILS OF PROCEDURE: The patient was taken to the operating room, and after general endotracheal anesthesia was induced, a Cervantes catheter was inserted, and the abdomen was prepped and draped. Beginning in the area, 3 fingerbreadths superior and to the left of the umbilicus, a transverse incision was made, and the peritoneal cavity was entered under direct vision with an Optiview trocar and inflated to 15 mmHg pressure of CO2. Laparoscope was then reinserted. No underlying trocar insertion site injuries were seen. Following this, bilateral transversus abdominis plane blocks were placed across the lateral abdomen using direct visualization of the needle into the correct plane and injection of the solution bilaterally. At this point, 12-mm trocars were placed in the right upper quadrant and left lower quadrant. The patient had a previous lower midline incision, and some omental adhesions were taken down. Following this then, the cecum was easily identified. As we began to dissect that area, it became evident there were extremely dense adhesions between the distal small bowel and the urinary bladder and posterior to that into the depths of the pelvis and also quite a bit of generalized inflammation across the area underlying and adjacent to the cecum and ascending colon. As one tried to dissect away this area with a combination of blunt and Harmonic scalpel-type dissection, it became evident that we were not going to get a good visualization of the appendix, and at that point, a decision was made to convert to an open procedure. After removal of the trocars, a low midline incision was made. This was eventually continued down from the level of the pubis to 3 fingerbreadths above the umbilicus. On further examination, the patient was noted to have extreme edema and dense adhesions between roughly distal 2 feet of the small bowel and the pelvis. This included essentially fusion of that bowel to the urinary bladder. As this was dissected off, there was significant lengthening of the urinary bladder, which was deserosalized. There was minimal underlying division of the urinary wall musculature, however. As one dissected further onto the cecum, this likewise was associated with generalized inflammation. Eventually, the cecum was mobilized from its retroperitoneal attachments after division of the entire length of the cecal and ascending colon lateral peritoneal reflection. As the cecum and ascending colon were mobilized upward, the appendix was identified. This was noted to be inflamed but not to any greater extent than the bowel in the cecum and ascending colon and distal small bowel region. At that point, a decision was made to proceed with a right colectomy. The patient also had areas of significant deserosalization in the distal 2 feet of the small bowel and that whole area appeared to be best resected with a primary anastomosis between the distal small bowel and the proximal transverse colon. The bowel proximally and distally was divided with TRIXIE mary and underlying mesentery then divided with TRIXIE stapler as well, and the specimen delivered from the field. Off the field, it was opened, and stool was obtained from the right colon and sent for C difficile enterotoxin as well as generalized stool cultures. At this point, the GI tract continuity was reestablished with 2 internal firings of the TRIXIE small loads creating a wasv-gh-prdo small bowel to proximal transverse colon anastomosis. The common opening was then closed transversely with purple loads and the angles anastomosed, and mesenteric defect approximated with some 3-0 Vicryl stitch. This anastomosis was also then reinforced with some fibrin sealant as well as some omentum being placed over it at the end of the procedure. The patient, during the course of the dissection, was noted to have a thin purulent collection subjacent to the cecum and ascending colon, i.e. a pericolonic abscess, and cultures of this were obtained as well. The deserosalized area of the urinary bladder was then reapproximated with a seromuscular stitch of 3-0 Vicryl stitch, and at that point, the abdomen was irrigated with a meropenem-containing saline solution. A single Maury-Hilario drain was taken through the stab wound in the right upper quadrant and draped along the right colic gutter and into the pelvis. The omentum was then mobilized downward into the pelvis and sutured there with some 3-0 Vicryl stitch to displace the viscera away from the pelvic structures to avoid recurrent visceral adhesions to the urinary bladder and pelvis per se. At that point, no further problems were noted. The midline fascia was approximated with a #2 Vicryl stitch. The skin and subcutaneous tissue were felt to be at high risk for a wound infection. Primary closure was undertaken, and we therefore packed open with Iodoform gauze for a planned delayed primary closure. The patient was taken to the recovery room in a satisfactory condition. There were no evident complications. Brayan Baumann MD /[id number]
--- NOTE | 2018-01-28 23:14 | PN ---
DATE OF SERVICE: 01/27/2018 The patient's temp in the 100.2 range this afternoon. Vital signs are otherwise stable. She is alert and looks to be feeling fairly good. She is having frequent loose diarrhea- type stools. The intraoperative stool cultures that were obtained were somewhat problematic as they were obtained from open bowel near the ileocecal valve. The patient's history is quite suggestive of enteritis as opposed to initial presentation suggestive of appendicitis on CT scan and she has a very pungent stool odor presently. The plan will be to obtain repeat cultures of the stool today along with C. difficile enterotoxin. We will discontinue the Unasyn at this point and otherwise will begin a full-liquid diet today. Her CECILIA drain was removed at the time of the procedure and she underwent a delayed primary closure without incident. Brayan Baumann MD /[id number]
--- NOTE | 2018-01-28 23:17 | OR ---
DATE OF PROCEDURE: 01/27/2018 PREOPERATIVE DIAGNOSIS: Open abdominal incision. POSTOPERATIVE DIAGNOSIS: Open abdominal incision. OPERATIVE PROCEDURE: Delayed primary closure of open abdominal incision. ANESTHESIA: Local plus IV sedation. INDICATION FOR PROCEDURE: The patient is status post a complicated right colectomy and distal small bowel resection in which there was some inherent contamination of the incision and the primary incision was left open for delayed primary closure at this time. Potential risks including bleeding and infection were reviewed and the patient wishes to proceed. DETAILS OF PROCEDURE: The patient was taken to the operating room and placed in a supine position, sitting somewhat upright in order to minimize aspiration risk. The operative dressing was taken down. The incision was inspected and found to be clean, was then prepped and draped, anesthetized with 1% lidocaine mixed with Marcaine. This included 3 trocar sites as well and an additional long midline incision. The long midline incision was then closed with 2 layers of 3-0 and 4-0 Vicryl stitch deep and mary for the skin. The trocar sites were likewise closed with mary and a dressing applied. The CECILIA drain which was present was removed and the patient was taken to the recovery room in satisfactory condition. There were no evident complications. Brayan Baumann MD /[id number]
[2018-01-29] MEDS: Acetaminophen 500 MG Tab PO PRN ×2 (03:05→13:29)
[2018-01-29] MEDS: HYDROmorphone 2 MG Tab PO PRN ×4 (03:05→20:58)
[2018-01-29] MEDS: Magnesium Sulfate/Water 2 GM in Premix Bag 1 BAG IV SCH ×4 (03:09→20:58)
[2018-01-29] MEDS: Levothyroxine 100 MCG Tab PO SCH (07:22)
[2018-01-29] MEDS: Tamsulosin 0.4 MG Cap.ER PO SCH ×2 (08:59→16:31)
[2018-01-29] MEDS: Hydrochlorothiazide/Triamterene 25-37.5 Tab PO SCH (09:00)
[2018-01-29] MEDS: Lactobacillus Rhamnosus GG (Probiotic) Cap PO SCH ×2 (09:00→20:59)
[2018-01-29] MEDS: DULoxetine 20 MG Cap PO SCH (09:01)
[2018-01-29] MEDS: Lisinopril 20 MG Tab PO SCH (09:01)
[2018-01-29] MEDS: Gabapentin 300 MG Cap PO SCH (09:01)
[2018-01-29] MEDS: Inulin 1.5 GM Chewable Tab PO SCH ×2 (09:10→21:05)
--- NOTE | 2018-01-29 09:13 | PN ---
DATE OF SERVICE: 01/29/2018 The patient has been afebrile with stable vital signs. She continues to have crampy abdominal pain and frequent loose bowel movements and some uncontrolled bowel movements. The pathology report came back showing more or less a complicated appendicitis as the underlying pathology. No specific colitis or enteritis was identified on the pathology. Again, the stool cultures had been negative, as well as C. difficile enterotoxin being negative. Given this, I think we will ask Dr. Steiner to see the patient regarding the GI symptoms and see what he might do in terms of additional workup or management. The patient's blood sugar is running in the 120-130 range. Given this, I think we can stop the Accu-Cheks. We will have the patient educator to see the patient regarding dietary recommendations, and with hemoglobin A1c of 6.4, she would either be diabetic or prediabetic at this point. She is having a little bit of leakage from the CECILIA drain site, and we will stitch that up later, if that continues, and continue the present pain management, which appears to be satisfactory. Brayan Baumann MD /[id number]
--- NOTE | 2018-01-29 12:51 | PCM.CONS ---
H&P History of Present Illness - General Date of Service: 01/29/18 Admit Problem/Dx: Admission Diagnosis/Problem Admission Diagnosis/Problem Appendectomy Source of Information: Patient, Provider, RN Notes Reviewed History Limitations: Reports: No Limitations - History of Present Illness Initial Comments - Free Text/Narative: Ms. Spencer is a 57-year-old woman who I been asked to see by Dr. Baumann for further suggestions concerning evaluation and management of diarrhea. Approximately 2-1/2 weeks prior to admission she began to develop loose bowel movements, initially these occurred 1 time per day and were associated with some low back pain. Symptoms progressed prior to admission where she was having a few loose stools per day associated with increased back and lower abdominal pain as well as fever and weakness with nausea and vomiting. She was evaluated in the emergency department and felt to have acute appendicitis, taken to surgery later that night. She was found to have inflammation of the distal small intestine as well as proximal large intestine, with pancreatitis and a pericolic abscess. She underwent delayed primary closure 2 days ago. Vital signs have been stable and she has remained afebrile with a normal white blood cell count. Since surgery she has continued to experience loose stools and has also experienced incontinence, in that she's not aware that she is having a bowel movement. Pathology from the surgical specimen shows evidence of infection but no other obvious abnormalities. Stool is been negative twice for C. difficile and stool culture has been negative with no white blood cells. Incisional Pain Score (Numeric/FACES): 3 - Related Data Allergies/Adverse Reactions: Allergies Allergy/AdvReac Type Severity Reaction Status Date / Time venom-honey bee Allergy Severe Anaphylactic Verified 01/24/18 07:11 [bee venom (honey bee)] Shock iodine Allergy Cannot Verified 02/09/14 14:02 Remember horse fly Allergy Swelling Uncoded 01/23/18 13:07 leechs Allergy Swelling Uncoded 01/23/18 13:07 Home Medications: Home Meds Cholecalciferol (Vitamin D3) [Vitamin D] 2,000 unit PO DAILY 02/09/14 [History] Gabapentin 300 mg PO DAILY 02/09/14 [History] Ibuprofen 600 mg PO DAILY PRN 02/09/14 [History] Levothyroxine [Synthroid] 100 mg PO DAILY 02/09/14 [History] Lisinopril 40 mg PO DAILY 02/09/14 [History] atorvaSTATin [Lipitor] 40 mg PO BEDTIME 02/09/14 [History] DULoxetine HCl [Duloxetine HCl] 40 mg PO DAILY 01/23/18 [History] EPINEPHrine [Epinephrine] 0.3 mg SQ DAILY PRN 01/23/18 [History] Naproxen 500 mg PO DAILY 01/23/18 [History] Triamterene/Hydrochlorothiazid [Triamterene-HCTZ 37.5-25 MG] 1 tab PO DAILY [History] predniSONE [Prednisone] 20 mg PO DAILY PRN 01/23/18 [History] traZODone HCl [Trazodone HCl] 50 - 100 mg PO DAILY 01/23/18 [History] Past Medical History HEENT History: Reports: Other (See Below) Cardiovascular History: Reports: High Cholesterol, Hypertension Gastrointestinal History: Reports: Irritable Bowel Syndrome Musculoskeletal History: Reports: Fracture Neurological History: Reports: Other (See Below) Other Neuro History: restless leg syndrome, Psychiatric History: Reports: Dementia Endocrine/Metabolic History: Reports: Hypothyroidism Immunologic History: Reports: Other (See Below) Other Immunologic History: mark - Infectious Disease History Infectious Disease History: Reports: Chicken Pox - Past Surgical History HEENT Surgical History: Reports: Eye Surgery, LASIK GI Surgical History: Reports: Colonoscopy Female Surgical History: Reports: Section, Hysterectomy Social & Family History - Tobacco Use Smoking Status *Q: Current Every Day Smoker Years of Tobacco use: 35 Packs/Tins Daily: 0.5 Used Tobacco, but Quit: No Second Hand Smoke Exposure: No - Caffeine Use Caffeine Use: Reports: None - Recreational Drug Use Recreational Drug Use: No H&P Review of Systems - Review of Systems: Review Of Systems: See Below General: Denies: Fever, Chills Pulmonary: Reports: No Symptoms Cardiovascular: Reports: No Symptoms Gastrointestinal: Reports: Abdominal Pain, Diarrhea, Decreased Appetite. Denies : Black Stool, Bloody Stool, Constipation, Difficulty Swallowing, Distension, Nausea, Vomiting Genitourinary: Reports: No Symptoms Musculoskeletal: Reports: No Symptoms Skin: Reports: No Symptoms Exam - Exam Exam: See Below - Vital Signs Vital Signs: Last Vital Signs Temp 97.4 F 01/29/18 12:40 Pulse 84 01/29/18 12:40 Resp 16 01/29/18 12:40 BP 110/70 01/29/18 12:40 Pulse Ox 96 01/29/18 12:40 Weight: 109 lb 5.588 oz - Exam Quality Assessment: DVT Prophylaxis General: Alert, Oriented, Cooperative, Mild Distress Neck: Supple, Trachea Midline, +2 Carotid Pulse wo Bruit Lungs: Clear to Auscultation, Normal Respiratory Effort Cardiovascular: Regular Rate, Regular Rhythm, Normal S1, Normal S2. No: Systolic Murmur, Diastolic Murmur GI/Abdominal Exam: Soft, No Distention, Tender. No: Guarding, Rigid, Rebound Back Exam: Normal Inspection, Full Range of Motion Extremities: Non-Tender, No Pedal Edema - Patient Data Result Diagrams: 01/28/18 04:37 01/28/18 04:37 Francisco Results Last 24 hrs: Microbiology 01/27/18 15:59 Stool Culture - Preliminary Stool / Feces - Stool, Liquid - Final NEGATIVE FOR SHIGA TOXIN 1 - Final NEGATIVE FOR SHIGA TOXIN 2 Consult PN Assessment/Plan Procedures: Procedures ASSAY OF AMYLASE (02/09/14) ASSAY OF LIPASE (02/09/14) C-REACTIVE PROTEIN (02/09/14) COMPLETE CBC W/AUTO DIFF WBC (02/09/14) CT ABDOMEN W/O DYE (02/09/14) CT THORAX W/O DYE (05/01/17) EMERGENCY DEPT VISIT (02/09/14) HEPATIC FUNCTION PANEL (02/09/14) METABOLIC PANEL TOTAL CA (02/09/14) ROUTINE VENIPUNCTURE (02/09/14) THER/PROPH/DIAG INJ IV PUSH (02/09/14) URINALYSIS AUTO W/SCOPE (02/09/14) Problem List Initiated/Reviewed/Updated: Yes My Orders Last 24 Hours: My Active Orders 01/30/18 05:00 TSH ULTRASENSITIVE [CHEM] Timed Plan: ASSESSMENT AND RECOMMENDATIONS PERSISTENT DIARRHEA AND RECTAL INCONTINENCE-status post surgery for appendicitis , pericolonic abscess, inflammation of the distal small intestine and proximal large intestine. Diarrhea present for 2-1/2 weeks prior to surgery and has persisted during the postoperative period. Associated with rectal incontinence. She denies any other neurologic symptoms and has had no urinary incontinence. Stool cultures have been negative and stool has been negative for C. difficile 2. Pathology results from surgical specimen showed no other obvious inflammatory process. Likely that the diarrhea is secondary to change in bowel alice related to recent antibiotics as well as slowly resolving inflammation from recent infection and surgery. -Continue probiotic therapy twice daily -Obtain TSH level to rule out iatrogenic hyperthyroidism -Consider use of Imodium if felt to be safe from a surgical standpoint -Outpatient colonoscopy when healed from surgery Requesting Provider: RODRIGO Date Consult Requested: 01/29/18 Reason for Consult: Diarrhea and rectal incontinence
[2018-01-29] MEDS: Pantoprazole 40 MG Tab.CR PO SCH (16:28)
[2018-01-29] MEDS: traZODone 50 MG Tab PO SCH (21:00)
[2018-01-29] MEDS: atorvaSTATin 20 MG Tab PO SCH (21:01)
[2018-01-30] MEDS: Ondansetron 4 MG/2 ML SDV IVPUSH PRN (02:00)
[2018-01-30] MEDS: Magnesium Sulfate/Water 2 GM in Premix Bag 1 BAG IV SCH ×4 (02:02→20:17)
[2018-01-30] MEDS: Levothyroxine 100 MCG Tab PO SCH (08:28)
[2018-01-30] MEDS: Lactobacillus Rhamnosus GG (Probiotic) Cap PO SCH ×2 (08:28→20:18)
[2018-01-30] MEDS: DULoxetine 20 MG Cap PO SCH (08:29)
[2018-01-30] MEDS: Tamsulosin 0.4 MG Cap.ER PO SCH ×2 (08:29→17:38)
[2018-01-30] MEDS: Hydrochlorothiazide/Triamterene 25-37.5 Tab PO SCH (08:29)
[2018-01-30] MEDS: Inulin 1.5 GM Chewable Tab PO SCH ×2 (08:29→20:19)
[2018-01-30] MEDS: Lisinopril 20 MG Tab PO SCH (08:29)
[2018-01-30] MEDS: Gabapentin 300 MG Cap PO SCH (08:30)
[2018-01-30] MEDS: Loperamide 2 MG Cap PO PRN ×4 (08:35→20:38)
[2018-01-30] MEDS ORDERED: Magnesium Sulfate/Water 2 GM in Premix Bag 1 BAG IV SCH (08:45)
--- NOTE | 2018-01-30 09:40 | PN ---
DATE OF SERVICE: 01/30/2018 SUBJECTIVE: Mary is having incontinent stools. She had 5 yesterday, was started on 3 fiber wafers twice a day. She thinks they are getting a little bit better. REVIEW OF SYSTEMS: Remainder of review of systems negative for any pertinent positives and negatives. OBJECTIVE: GENERAL: Mary Becerra is a 57-year-old female. VITAL SIGNS: TPR 100.4, 88, 16, and blood pressure 125/71. Oral intake 1020 and urine output was 1625. HEENT: Negative. NECK: Supple. HEART: Regular rate and rhythm. LUNGS: Clear. ABDOMEN: Soft and nontender. Incisions look good. EXTREMITIES: Without peripheral edema. ASSESSMENT: 1. Postoperative diarrhea. 2. Exploratory laparoscopy turned to laparotomy with lysis of extensive adhesion, right colon resection, distal small bowel resection, repair deserosalization of bowel to urinary bladder and drainage of pericolonic abscess, mobilization of omentum into pelvis for: 3. Right-sided colitis with extensive retroperitoneal inflammation involving the appendix. 4. Dense adhesions distal small bowel to pelvic sidewall in urinary bladder. 5. Pelvic abscess. Surgeon, Brayan Baumann MD. Date of surgery 01/23/2018. 6. Delayed primary closure 01/27/2018. Surgeon, Brayan Baumann MD. PLAN: 1. Rx Imodium 2 mg q.4 hours p.r.n. diarrhea. 2. Good pulmonary toilet. 3. We will evaluate p.r.n. or in a.m. Saray Hernandez PA-C /[id number]
--- NOTE | 2018-01-30 12:39 | PCM.CONSN ---
- General Info Date of Service: 01/30/18 Subjective Update: This patient has continued to experience fairly watery diarrhea since yesterday. She is been started on Imodium today and remains on fiber supplement as well as probiotic twice daily. Vital signs have been stable and she's had only slight temperature elevation in the last 24 hours. - Review of Systems General: Reports: Weakness Pulmonary: Reports: No Symptoms Cardiovascular: Reports: No Symptoms Gastrointestinal: Reports: Abdominal Pain, Decreased Appetite, Diarrhea. Denies : Difficulty Swallowing, Nausea, Vomiting Genitourinary: Reports: No Symptoms - Patient Data Vitals - Most Recent: Last Vital Signs Temp 100.4 F 01/30/18 07:29 Pulse 88 01/30/18 07:29 Resp 16 01/30/18 07:29 BP 125/71 01/30/18 08:29 Pulse Ox 95 01/30/18 07:29 Weight - Most Recent: 109 lb 5.588 oz I&O - Last 24 Hours: Intake & Output 01/29/18 01/30/18 01/30/18 22:59 06:59 14:59 Intake Total 522 300 290 Output Total 975 700 450 Balance -453 -400 -160 Lab Results Last 24 Hours: Laboratory Results - last 24 hr 01/30/18 Range/Units 04:32 TSH, Ultra Sensitive 3.230 (0.358-3.740) uIU/mL Francisco Results Last 24 Hours: Microbiology 01/27/18 15:59 Stool Culture - Preliminary Stool / Feces - Stool, Liquid NORMAL ENTERIC RICHAR 2 DAYS - Final NEGATIVE FOR SHIGA TOXIN 1 - Final NEGATIVE FOR SHIGA TOXIN 2 Med Orders - Current: Current Medications Acetaminophen (Tylenol Extra Strength) 1,000 mg PO Q4H PRN PRN Reason: pain or fever Last Admin: 01/29/18 13:29 Dose: 1,000 mg Atorvastatin Calcium (Lipitor) 40 mg PO BEDTIME KVNG Last Admin: 01/29/18 21:01 Dose: 40 mg Cyclobenzaprine HCl (Flexeril) 10 mg PO Q8H PRN PRN Reason: muscle spasms Last Admin: 01/27/18 22:03 Dose: 10 mg Duloxetine HCl (Cymbalta) 40 mg PO DAILY KVNG Last Admin: 01/30/18 08:29 Dose: 40 mg Gabapentin (Neurontin) 300 mg PO DAILY KVNG Last Admin: 01/30/18 08:30 Dose: 300 mg Glucagon (Glucagen) 1 mg IM ASDIRECTED PRN PRN Reason: HYPOGLYCEMIA Hydromorphone HCl (Dilaudid) 2 - 4 mg PO Q4H PRN PRN Reason: Pain Last Admin: 01/29/18 20:58 Dose: 4 mg Hydroxyzine HCl (Vistaril) 100 mg IM Q4H PRN PRN Reason: Pain Last Admin: 01/27/18 00:09 Dose: 100 mg Magnesium Sulfate 2 gm/ Premix 50 mls @ 25 mls/hr IV Q6H [facility] Stop: 01/31/18 04:59 Last Admin: 01/30/18 08:48 Dose: 25 mls/hr Inulin (Fiber Choice) 4.5 gm PO BID [facility] Last Admin: 01/30/18 08:29 Dose: 4.5 gm Lactobacillus Rhamnosus (Culturelle) 2 cap PO BID [facility] Last Admin: 01/30/18 08:28 Dose: 2 cap Levothyroxine Sodium (Synthroid) 100 mcg PO ACBREAKFAST [facility] Last Admin: 01/30/18 08:28 Dose: 100 mcg Lisinopril (Prinivil) 40 mg PO DAILY [facility] Last Admin: 01/30/18 08:29 Dose: 40 mg Loperamide HCl (Imodium) 2 mg PO Q4H PRN PRN Reason: diarrhea Last Admin: 01/30/18 08:35 Dose: 2 mg Lorazepam (Ativan) 0.5 mg IVPUSH Q4H PRN PRN Reason: anxiety Ondansetron HCl (Zofran) 4 mg IVPUSH Q4H PRN PRN Reason: Nausea/Vomiting Last Admin: 01/30/18 02:00 Dose: 4 mg Ondansetron HCl (Zofran Odt) 4 mg PO Q4H PRN PRN Reason: Nausea/Vomiting Pantoprazole Sodium (Protonix) 40 mg PO Q24H [facility] Last Admin: 01/29/18 16:28 Dose: 40 mg Sodium Chloride (Saline Flush) 10 ml FLUSH ASDIRECTED PRN PRN Reason: Keep Vein Open Tamsulosin HCl (Flomax) 0.4 mg PO BIDPC [facility] Last Admin: 01/30/18 08:29 Dose: 0.4 mg Trazodone HCl (Trazodone) 50 - 100 mg PO BEDTIME [facility] Last Admin: 01/29/18 21:00 Dose: 100 mg Triamterene/HCTZ (Maxzide 25-37.5 Mg) 1 each PO DAILY [facility] Last Admin: 01/30/18 08:29 Dose: 1 each Discontinued Medications Bupivacaine HCl (Marcaine 0.5%) Confirm Administered Dose 50 ml .ROUTE .STK-MED ONE Stop: 01/27/18 13:48 Last Admin: 01/27/18 15:15 Dose: 10 ml Bupivacaine HCl/Epinephrine Bitart (Marcaine 0.5%/Epinephrine 1:200,000) Confirm Administered Dose 50 ml .ROUTE .STK-MED ONE Stop: 01/23/18 15:26 Ropivacaine 25 ml/Dexamethasone 8 mg/Epinephrine HCl 0.4 mg/ Sodium Chloride 52.6 ml 0 ml NERVRT ASDIRECTED [facility] Last Admin: 01/23/18 16:35 Dose: 100 syringe Ropivacaine 25 ml/Dexamethasone 8 mg/Epinephrine HCl 0.4 mg/ Sodium Chloride 52.6 ml 0 ml NERVRT ASDIRECTED [facility] Last Admin: 01/27/18 14:55 Dose: 80 syringe Dexamethasone (Dexamethasone) Confirm Administered Dose 4 mg .ROUTE .STK-MED ONE Stop: 01/23/18 15:58 Dextrose (Glutose 15) 15 gm PO ASDIRECTED PRN PRN Reason: HYPOGLYCEMIA Dextrose/Water (Dextrose 50% In Water) 50 ml IVPUSH ASDIRECTED PRN PRN Reason: HYPOGLYCEMIA Fentanyl (Sublimaze) 50 mcg IVPUSH ONETIME ONE Stop: 01/23/18 14:02 Last Admin: 01/23/18 15:02 Dose: 50 mcg Fentanyl (Sublimaze) Confirm Administered Dose 250 mcg .ROUTE .STK-MED ONE Stop: 01/23/18 16:02 Fentanyl (Sublimaze) Confirm Administered Dose 250 mcg .ROUTE .STK-MED ONE Stop: 01/23/18 16:32 Fentanyl (Sublimaze) Confirm Administered Dose 100 mcg .ROUTE .STK-MED ONE Stop: 01/27/18 14:33 Glycopyrrolate (Robinul) Confirm Administered Dose 1 mg .ROUTE .STK-MED ONE Stop: 01/23/18 15:58 Hydromorphone HCl (Dilaudid Biostatistics Teacher 15 Mg In Ns 30 Ml) 0 mg IV ASDIRECTED PRN; Protocol PRN Reason: CURBING [employer] PAIN CONTROL Last Admin: 01/23/18 16:24 Dose: 15 mg Hydromorphone HCl (Dilaudid Biostatistics Teacher 15 Mg In Ns 30 Ml) 15 mg IV ASDIRECTED KVNG; Protocol Hydromorphone HCl (Dilaudid Biostatistics Teacher 15 Mg In Ns 30 Ml) 0 mg IV ASDIRECTED KVNG; Protocol Last Admin: 01/25/18 20:20 Dose: 15 mg Hydroxyzine HCl (Vistaril) Confirm Administered Dose 100 mg .ROUTE .STK-MED ONE Stop: 01/23/18 18:28 Last Admin: 01/23/18 18:29 Dose: 100 mg Lactated Ringer's (Ringers, Lactated) 1,000 mls @ 999 mls/hr IV ASDIRECTED [facility] Last Admin: 01/23/18 15:04 Dose: 999 mls/hr Ampicillin Sodium/Sulbactam (Sodium 3 gm/ Sodium Chloride) 100 mls @ 200 mls/ hr IV ONETIME ONE Stop: 01/23/18 16:29 Last Admin: 01/23/18 15:33 Dose: 200 mls/hr Lactated Ringer's (Ringers, Lactated) Confirm Administered Dose 1,000 mls @ as directed .ROUTE .STK-MED ONE Stop: 01/23/18 17:11 Dextrose/Lactated Ringer's (Dextrose 5%-Lactated Ringers) 1,000 mls @ 200 mls/ hr IV ASDIRECTED [facility] Last Infusion: 01/24/18 07:56 Dose: 100 mls/hr Ampicillin Sodium/Sulbactam (Sodium 3 gm/ Sodium Chloride) 100 mls @ 200 mls/ hr IV Q6H [facility] Last Admin: 01/27/18 21:33 Dose: Not Given Magnesium Sulfate 2 gm/ Premix 50 mls @ 25 mls/hr IV Q6H [facility] Stop: 01/27/18 04:29 Last Admin: 01/27/18 03:21 Dose: 25 mls/hr Dextrose/Lactated Ringer's (Dextrose 5%-Lactated Ringers) 1,000 mls @ 100 mls/ hr IV ASDIRECTED [facility] Last Admin: 01/28/18 21:57 Dose: 100 mls/hr Potassium Chloride 20 meq/Lidocaine HCl 2 ml/ Sodium Chloride 112 mls @ 56 mls/ hr IV Q2H [facility] Stop: 01/26/18 12:59 Last Admin: 01/26/18 13:45 Dose: 56 mls/hr Potassium Chloride 20 meq/Lidocaine HCl 2 ml/ Sodium Chloride 112 mls @ 56 mls/ hr IV ONETIME ONE Stop: 01/27/18 10:29 Last Admin: 01/27/18 09:00 Dose: 56 mls/hr Acetaminophen 1,000 mg/ Premix 100 mls @ 400 mls/hr IV NOW ONE Stop: 01/27/18 13:29 Last Admin: 01/27/18 13:11 Dose: 400 mls/hr Magnesium Sulfate 2 gm/ Premix 50 mls @ 25 mls/hr IV Q6H [facility] Stop: 02/02/18 04:44 Insulin Aspart (Novolog) 0 unit SUBCUT Q6H [facility]; Protocol Last Admin: 01/28/18 05:41 Dose: Not Given Insulin Aspart (Novolog) 0 unit SUBCUT QIDPCANDBED [facility]; Protocol Last Admin: 01/28/18 21:59 Dose: Not Given Ketamine HCl (Ketalar) 25 mg IV ASDIRECTED [facility] Labetalol HCl (Normodyne) 10 mg IVPUSH ONETIME ONE; Protocol Stop: 01/23/18 19:06 Last Admin: 01/23/18 19:20 Dose: 10 mg Labetalol HCl (Normodyne) Confirm Administered Dose 20 mg .ROUTE .STK-MED ONE Stop: 01/23/18 19:11 Last Admin: 01/23/18 20:30 Dose: Not Given Lidocaine/Epinephrine (Xylocaine 1% With Epinephrine 1:100,000) Confirm Administered Dose 50 ml .ROUTE .STK-MED ONE Stop: 01/27/18 13:48 Last Admin: 01/27/18 15:15 Dose: 10 ml Meropenem (Merrem) Confirm Administered Dose 500 mg .ROUTE .STK-MED ONE Stop: 01/23/18 17:30 Meropenem (Merrem) Confirm Administered Dose 500 mg .ROUTE .STK-MED ONE Stop: 01/27/18 13:48 Last Admin: 01/27/18 15:10 Dose: 500 mg Miscellaneous Information (Remove Patch) 1 ea TRDERM DAILY [facility] Last Admin: 01/26/18 10:25 Dose: Not Given Naloxone HCl (Narcan) 0.1 mg IV ASDIRECTED PRN PRN Reason: decreased respiratory rate Neostigmine Methylsulfate (Neostigmine) Confirm Administered Dose 5 mg .ROUTE .STK-MED ONE Stop: 01/23/18 15:58 Non-Formulary Medication (Nf Drug) 0 each .XX ASDIRECTED [facility]; Protocol Stop: 01/24/18 23:00 Ondansetron HCl (Zofran) 4 mg IVPUSH ONETIME ONE Stop: 01/23/18 14:02 Last Admin: 01/23/18 15:03 Dose: 4 mg Ondansetron HCl (Zofran) Confirm Administered Dose 4 mg .ROUTE .STK-MED ONE Stop: 01/23/18 15:58 Pantoprazole Sodium (Protonix Iv) 40 mg IVPUSH Q24H [facility] Last Admin: 01/25/18 19:42 Dose: 40 mg Propofol (Diprivan 20 Ml) Confirm Administered Dose 200 mg .ROUTE .STK-MED ONE Stop: 01/23/18 15:58 Propofol (Diprivan 20 Ml) Confirm Administered Dose 200 mg .ROUTE .STK-MED ONE Stop: 01/27/18 14:33 Rocuronium [place] (Zemuron) Confirm Administered Dose 50 mg .ROUTE .STK-MED ONE Stop: 01/23/18 15:58 Scopolamine (Transderm-Scop) Confirm Administered Dose 1.5 mg .ROUTE .STK-MED ONE Stop: 01/23/18 16:11 Scopolamine (Transderm-Scop) 1.5 mg TOP Q72H [facility] Succinylcholine Chloride (Quelicin) Confirm Administered Dose 200 mg .ROUTE .STK -MED ONE Stop: 01/23/18 15:58 Trazodone HCl (Trazodone) 50 mg PO BEDTIME [facility] Last Admin: 01/25/18 22:33 Dose: 50 mg - Exam General: Alert, Oriented, Cooperative, Mild Distress Lungs: Clear to Auscultation, Normal Respiratory Effort Cardiovascular: Regular Rate, Regular Rhythm, No Murmurs GI/Abdominal Exam: Soft, No Organomegaly, Tender. No: Distended, Guarding, Rigid, Rebound Back Exam: Normal Inspection, Full Range of Motion Extremities: Non-Tender, No Pedal Edema Consult PN Assessment/Plan Procedures: Procedures ASSAY OF AMYLASE (02/09/14) ASSAY OF LIPASE (02/09/14) C-REACTIVE PROTEIN (02/09/14) COMPLETE CBC W/AUTO DIFF WBC (02/09/14) CT ABDOMEN W/O DYE (02/09/14) CT THORAX W/O DYE (05/01/17) EMERGENCY DEPT VISIT (02/09/14) HEPATIC FUNCTION PANEL (02/09/14) METABOLIC PANEL TOTAL CA (02/09/14) ROUTINE VENIPUNCTURE (02/09/14) THER/PROPH/DIAG INJ IV PUSH (02/09/14) URINALYSIS AUTO W/SCOPE (02/09/14) Problem List Initiated/Reviewed/Updated: Yes Plan: ASSESSMENT AND RECOMMENDATIONS PERSISTENT DIARRHEA AND RECTAL INCONTINENCE-persistent diarrhea since yesterday , started on Imodium this morning -Continue probiotic therapy twice daily -Obtain TSH level to rule out iatrogenic hyperthyroidism -Continue use of Imodium and fiber supplement -Outpatient colonoscopy when healed from surgery
[2018-01-30] MEDS: Ondansetron 4 MG Tab.DIS PO PRN ×2 (13:27→17:38)
[2018-01-30] MEDS ORDERED: Dimethicone 20%/Zinc Oxide 25% 56 GM Spray Bottle TOP PRN (15:32)
[2018-01-30] MEDS: Pantoprazole 40 MG Tab.CR PO SCH (15:39)
[2018-01-30] MEDS: traZODone 50 MG Tab PO SCH (20:19)
[2018-01-30] MEDS: atorvaSTATin 20 MG Tab PO SCH (20:20)
[2018-01-30] MEDS: HYDROmorphone 2 MG Tab PO PRN (20:38)
[2018-01-31] MEDS: Magnesium Sulfate/Water 2 GM in Premix Bag 1 BAG IV SCH (03:32)
[2018-01-31] MEDS: HYDROmorphone 2 MG Tab PO PRN (03:45)
[2018-01-31] MEDS: Levothyroxine 100 MCG Tab PO SCH (07:22)
[2018-01-31] MEDS: Acetaminophen 500 MG Tab PO PRN (07:44)
[2018-01-31] MEDS: Atropine/Diphenoxylate 0.025-2.5 MG Tab PO SCH ×3 (07:44→20:03)
[2018-01-31] MEDS: Tamsulosin 0.4 MG Cap.ER PO SCH ×2 (07:46→16:42)
[2018-01-31] MEDS: DULoxetine 20 MG Cap PO SCH (08:33)
[2018-01-31] MEDS: Calcium Polycarbophil 625 MG Tab PO SCH ×3 (08:33→20:04)
[2018-01-31] MEDS: Hydrochlorothiazide/Triamterene 25-37.5 Tab PO SCH ×2 (08:34→09:00)
[2018-01-31] MEDS: Gabapentin 300 MG Cap PO SCH ×2 (08:34→20:03)
[2018-01-31] MEDS: Lisinopril 20 MG Tab PO SCH (09:00)
--- NOTE | 2018-01-31 09:16 | PN ---
DATE OF SERVICE: 01/31/2018 SUBJECTIVE: Mary remains to have urgency and some incontinence of bowel movements. She had a total of 6 yesterday. She was given Imodium and is on fiber wafers. Oral intake 1200, and urine output amount was not able to be measured because it was with stool. Pain is controlled. REVIEW OF SYSTEMS: Remainder of review of systems is negative for any pertinent positives and negatives. OBJECTIVE: GENERAL: Mary Spencer is a 57-year-old female. VITAL SIGNS: TPR is 96.9, 71, 14. Blood pressure 104/54. HEENT: Negative. NECK: Supple. HEART: Regular rate and rhythm. LUNGS: Clear. ABDOMEN: Dressings dry and intact. Abdominal binder is on. EXTREMITIES: Without peripheral edema. ASSESSMENT: 1. Postoperative diarrhea. 2. Exploratory laparoscopy turned to laparotomy with lysis of extensive adhesions, right colon resection, distal small bowel resection, repair of deserosalization of bowel to urinary bladder and drainage of pericolonic abscess, mobilization of omentum into pelvis, for right-sided colitis with extensive retroperitoneal inflammation involving the appendix, dense adhesions distal small bowel to pelvis sidewall and urinary bladder, pelvic abscess. a. Surgeon; Brayan Baumann M.D. Date of surgery, 01/23/2018. 3. Delayed primary closure, 01/27/2018. Surgeon; Brayan Baumann M.D. PLAN: 1. Imodium 2 mg p.o. q.i.d. scheduled. 2. Lomotil 1 in the a.m. and 1 before supper. 3. FiberCon 2 t.i.d. p.o. scheduled. 4. Discontinue fiber wafers. 5. We will evaluate p.r.n. or in a.m. Saray Hernandez PA-C /[id number]
[2018-01-31] MEDS: Loperamide 2 MG Cap PO SCH ×3 (10:27→21:19)
[2018-01-31] MEDS: Lactobacillus Rhamnosus GG (Probiotic) Cap PO SCH ×2 (10:28→20:03)
[2018-01-31] MEDS: Pantoprazole 40 MG Tab.CR PO SCH (16:42)
[2018-01-31] MEDS: traZODone 50 MG Tab PO SCH (20:04)
[2018-01-31] MEDS: atorvaSTATin 20 MG Tab PO SCH (20:04)
[2018-02-01] MEDS: Loperamide 2 MG Cap PO SCH ×4 (03:15→22:08)
[2018-02-01] MEDS: Tamsulosin 0.4 MG Cap.ER PO SCH ×2 (07:31→16:39)
[2018-02-01] MEDS: Levothyroxine 100 MCG Tab PO SCH (07:31)
[2018-02-01] MEDS: Calcium Polycarbophil 625 MG Tab PO SCH ×3 (09:58→22:06)
[2018-02-01] MEDS: Lactobacillus Rhamnosus GG (Probiotic) Cap PO SCH ×2 (09:58→22:05)
[2018-02-01] MEDS: DULoxetine 20 MG Cap PO SCH (09:59)
[2018-02-01] MEDS: Lisinopril 20 MG Tab PO SCH (09:59)
[2018-02-01] MEDS: Hydrochlorothiazide/Triamterene 25-37.5 Tab PO SCH (10:00)
[2018-02-01] MEDS: Atropine/Diphenoxylate 0.025-2.5 MG Tab PO SCH ×2 (10:02→22:12)
--- NOTE | 2018-02-01 10:23 | PN ---
DATE OF SERVICE: 02/01/2018 SUBJECTIVE: Mary has had a total of 7 loose stools. She states that she has been incontinent in her brief, very concerned about going home with these many stools. She did not have any bowel movement from 11:00 p.m. until 7, so there is improvement. Oral intake was 960. Urine output not able to measure because of that mixed with stool. Mary does state she is having burning and urgency with urination and would like a UA checked. REVIEW OF SYSTEMS: Remainder of review of systems negative for any pertinent positives and negatives. OBJECTIVE: GENERAL: Mary is a 57-year-old female. VITAL SIGNS: TPR 98.6, 77, 16. Blood pressure 138/68. HEENT: Negative. NECK: Supple. HEART: Regular rate and rhythm. LUNGS: Clear. ABDOMEN: Soft, nontender, mary in place. Abdominal binder has been on. EXTREMITIES: Without peripheral edema. ASSESSMENT: 1. Postoperative diarrhea. 2. Exploratory laparoscopy turned to laparotomy, lysis of extensive adhesion, right colon resection, distal small bowel resection, repair of deserosalization of bowel to urinary bladder and drainage of pericolonic abscess, mobilization of omentum into pelvis for right-sided colitis with extensive retroperitoneal inflammation involving the appendix, dense adhesion, distal small bowel to pelvic sidewall and urinary bladder, pelvic abscess. Surgeon, Brayan Baumann MD. Date of surgery 01/23/2018. 3. Delayed primary closure, 01/27/2018. PLAN: 1. Banatrol Plus, it is high in fiber (banana flakes) one packet add to 120 mL of water t.i.d. 2. Check UA/UC. 3. Good pulmonary toilet. 4. We will evaluate p.r.n. or in a.m. 5. Plan to discharge in a.m. with home health care. Saray Hernandez PA-C /[id number]
[2018-02-01] MEDS: Pantoprazole 40 MG Tab.CR PO SCH (16:39)
[2018-02-01] MEDS: Gabapentin 300 MG Cap PO SCH (22:05)
[2018-02-01] MEDS: atorvaSTATin 20 MG Tab PO SCH (22:07)
[2018-02-01] MEDS: traZODone 50 MG Tab PO SCH (22:08)
[2018-02-02] MEDS: Loperamide 2 MG Cap PO SCH ×2 (03:41→09:02)
[2018-02-02] MEDS: Levothyroxine 100 MCG Tab PO SCH (07:26)
[2018-02-02] MEDS: Lactobacillus Rhamnosus GG (Probiotic) Cap PO SCH (08:45)
[2018-02-02] MEDS: Hydrochlorothiazide/Triamterene 25-37.5 Tab PO SCH (08:45)
[2018-02-02] MEDS: Tamsulosin 0.4 MG Cap.ER PO SCH (08:45)
[2018-02-02] MEDS: Calcium Polycarbophil 625 MG Tab PO SCH (08:45)
[2018-02-02] MEDS: Lisinopril 20 MG Tab PO SCH (08:45)
[2018-02-02] MEDS: DULoxetine 20 MG Cap PO SCH (08:46)
[2018-02-02] MEDS: Atropine/Diphenoxylate 0.025-2.5 MG Tab PO SCH (08:53)
--- NOTE | 2018-02-05 08:17 | DISCH ---
FINAL DIAGNOSES: 1. Retrocecal appendicitis with extensive retroperitoneal inflammation and associated confluent inflammation and adhesions between the small bowel pelvic sidewall, urinary bladder. 2. Pericolonic abscess. 3. Postoperative persistent diarrhea or loose bowel movements. 4. History of irritable bowel syndrome. 5. History of hypertension. 6. History of hyperlipidemia. 7. Restless legs syndrome. 8. Mild dementia. 9. History of lupus. OPERATIVE PROCEDURE: First one was done on 01/23, would be laparoscopy converted to laparotomy with lysis of extensive adhesions. 1. Right colon resection. 2. Distal small bowel resection. 3. Repair of area of deserosalization of the urinary bladder. 4. Drainage of pericolonic abscess. 5. Mobilization of omentum into pelvis. On 01/27, delayed primary closure of abdominal incision. HOSPITAL COURSE: This is a week 57-year-old presenting with a 2-week history of frequent loose bowel movements and diarrhea and she had not been on any recent antibiotics. Her pain over that period was more or less across the mid and lower abdomen, became a little bit more right-sided as time went by. At the time of workup, she was felt to have an appendicitis by CT scan and at the time of the initial laparoscopy, there was marked inflammation in the entire right colon as well as distal small-bowel being densely adherent to the area of bladder and pelvic sidewall, and a pericolonic abscess was present. We were not able to identify the appendix per se laparoscopically and decision was made to convert to an open procedure. Then with lysis of adhesions as some distal small bowel needed to be resected and as the entire right colon was markedly inflamed, it was felt she may have an element of colitis present and a right colon resection was completed. The patient on pathology was noted to have appendicitis. Postoperatively, the patient had persistent loose bowel movements to the extent that we needed to keep her in hospital as she was not able to get to the bathroom in time. She is now controlling things fairly well. She is taking Banatrol Plus along with FiberCon and we sent home on those, as well as a high-fiber diet. She will only take Tylenol at this point for pain and is getting some rash in the perianal area. Her incision has been clean at this point and will follow up with Dr. Baumann on 02/06/2018.
== END 2018-02-02 13:48 | disposition home or self-care (01) | DRG 330 ==
LOC: JP.ED 12:49 → JP.SDS 15:52 → JP.MS 18:15
PROVIDERS: ADMIT Surgery; ATTEND Surgery
PROC: 0DTF0ZZ Resection of Right Large Intestine, Open Approach (ICD-10-PCS; principal; 2018-01-23)
PROC: 0DJD4ZZ Inspection of Lower Intestinal Tract, Percutaneous Endoscopic Approach (ICD-10-PCS; 2018-01-23)
PROC: 0DB80ZX Excision of Small Intestine, Open Approach, Diagnostic (ICD-10-PCS; 2018-01-23)
PROC: 0TQB0ZZ Repair Bladder, Open Approach (ICD-10-PCS; 2018-01-23)
PROC: 0W9G0ZX Drainage of Peritoneal Cavity, Open Approach, Diagnostic (ICD-10-PCS; 2018-01-23)
PROC: 0DNU0ZZ Release Omentum, Open Approach (ICD-10-PCS; 2018-01-23)
PROC: 0DNK0ZZ Release Ascending Colon, Open Approach (ICD-10-PCS; 2018-01-23)
PROC: 0DN80ZZ Release Small Intestine, Open Approach (ICD-10-PCS; 2018-01-23)
PROC: 0DNW0ZZ Release Peritoneum, Open Approach (ICD-10-PCS; 2018-01-23)
PROC: 0DNU0ZZ Release Omentum, Open Approach (ICD-10-PCS; 2018-01-23)
PROC: 0DNH0ZZ Release Cecum, Open Approach (ICD-10-PCS; 2018-01-23)
PROC: 0TNB0ZZ Release Bladder, Open Approach (ICD-10-PCS; 2018-01-23)
PROC: 0D1B0ZL Bypass Ileum to Transverse Colon, Open Approach (ICD-10-PCS; 2018-01-23)
PROC: 3E0T3BZ Introduction of Anesthetic Agent into Peripheral Nerves and Plexi, Percutaneous Approach (ICD-10-PCS; 2018-01-23)
PROC: 0WQF0ZZ Repair Abdominal Wall, Open Approach (ICD-10-PCS; 2018-01-27)
DX: K35.3 Acute appendicitis with localized peritonitis (principal); K63.0 Abscess of intestine; K52.89 Other specified noninfective gastroenteritis and colitis; B96.20 Unspecified Escherichia coli [E. coli] as the cause of diseases classified elsewhere; K66.0 Peritoneal adhesions (postprocedural) (postinfection); Z53.31 Laparoscopic surgical procedure converted to open procedure; Z48.1 Encounter for planned postprocedural wound closure; N32.89 Other specified disorders of bladder; I10 Essential (primary) hypertension; F17.210 Nicotine dependence, cigarettes, uncomplicated; E03.9 Hypothyroidism, unspecified; E78.5 Hyperlipidemia, unspecified; Z91.030 Bee allergy status; Z79.52 Long term (current) use of systemic steroids; Z91.048 Other nonmedicinal substance allergy status; E83.42 Hypomagnesemia; R19.7 Diarrhea, unspecified; R15.9 Full incontinence of feces; L93.0 Discoid lupus erythematosus; G25.81 Restless legs syndrome; K52.9 Noninfective gastroenteritis and colitis, unspecified
CPT/HCPCS: 36415; 51798; 74176; 74176-26; 80053; 81001; 82962; 83036; 83605; 83735; 83880; 84100; 84443; 85025; 85027; 87046; 87070; 87075; 87077; 87086; 87186; 87205; 87493; 87899; 88307; 89055; 94762; 96365; 96375; 99285-25; A9270-GY; C9113; J0131; J0171; J0295; J0330; J1100; J1170; J2185; J2405; J2704; J2710; J2795; J3010; J3410; J3475; J3480; J3490; J7030; J7042; J7050; J7120

== ENCOUNTER 2018-02-21 07:56 | Day surgery (SDC) | payer MEDICAID ==
[~2018-02-21 07:56] MED LIST: Dextrose 5%-Lactated Ringers 1,000 ML IV SCH; Midazolam 1 MG/ML 2 ML SDV ONE; Propofol 200 MG/20 ML SDV ONE; fentaNYL 100 MCG/2 ML SDV ONE
[2018-02-21] MEDS ORDERED: Lactated Ringers 1,000 ML IV ONE (08:44)
[2018-02-21] MEDS ORDERED: Ondansetron 4 MG/2 ML SDV ONE (09:27)
[2018-02-21] MEDS ORDERED: Propofol 200 MG/20 ML SDV ONE (09:39)
[2018-02-21] MEDS ORDERED: MVI, Adult with Vitamin K 10 ML, Thiamine 200 MG, Chromium/Copper/Mang/Selen/Zn 1 ML in... IV ONE ×4 (10:00)
[2018-02-21] MEDS ORDERED: methylPREDNISolone Sodium Succinate 125 MG/2 ML SDV IVPUSH ONE (12:35)
[2018-02-21] MEDS ORDERED: Diatrizoate Meglumine/Diatrizoate Sodium 37% 120 ML Bottle PO PRN (12:43)
--- NOTE | 2018-02-21 12:58 | CR ---
Barium Enema Comp HISTORY: incomplete colonoscopy Single contrast enema was obtained in the usual retrograde fashion using half-strength Gastrografin. The patient has a history of recent right hemicolectomy. FINDINGS: No mass or stricture is identified. I see no polypoid filling defect. There are a few diver ticuli in the mid to distal sigmoid colon. There is no contrast extravasation. No significant mucosal abnormality can be seen. Scattered small amounts of fecal material are noted. There is reflux of con trast into the distal ileum. IMPRESSION: Mild diverticulosis changes mid to distal sigmoid colon. Right hemicolectomy changes are noted. No other significant colon abnormalities identified. There is no mass, stricture, or evidence for contrast extravasation.
--- NOTE | 2018-02-25 15:21 | OR ---
DATE OF PROCEDURE: 02/21/2018 PREOPERATIVE DIAGNOSES: Persistent crampy abdominal pain and frequent loose bowel movements. POSTOPERATIVE DIAGNOSES: 1. Sigmoid colon diverticulosis. 2. Markedly angulated sigmoid colon, preventing full colonoscopy. OPERATIVE PROCEDURE: Flexible colonoscopy (incomplete). ANESTHESIA: IV sedation. INDICATION FOR PROCEDURE: This is a 57-year-old presenting with persistent crampy abdominal pain along with frequent loose bowel movements. Workup thus far has been negative for any stool-type infections. The plan is to proceed with a flexible colonoscopy as the CT scan obtained showed some possible thickening of the sigmoid colon. The potential risks including bleeding and perforation were discussed, and the patient wishes to proceed. DETAILS OF PROCEDURE: The patient was taken to the operating room and placed in a left lateral decubitus position. IV sedation was administered, after which the initial digital rectal exam was performed and it was unremarkable. Colonoscope was then passed into the rectum with retroflexion revealing uncomplicated hemorrhoidal columns. The scope was then passed to the level of 30 cm. The patient was noted at that point to have some uncomplicated diverticulosis and probably more in the way of mucoid-type secretions than would typically be seen. Due to what appeared to be a marked angulation, likely related to adhesions, was encountered at that level, and the scope could not be passed further proximally, the scope was then withdrawn, and the procedure concluded. The patient subsequently underwent a water soluble colon x-ray, which showed the areas of the diverticulosis in the sigmoid colon, but was otherwise negative. At this point, we were left with the problem with the patient not able to have satisfactory biopsies, looking at the areas of possible colitis and with other diagnoses being partially eliminated, I think we will empirically treat the patient with a course of steroids. She will be given Solu-Medrol in the ACU and then start her on a Medrol Dosepak. We will see the patient back in 2 weeks for recheck to see how things are going. Otherwise, she will be continuing her present Zofran for nausea as well as Lomotil and probiotic capsules as needed. Brayan Baumann MD /[id number]
== END 2018-02-21 13:40 | disposition home or self-care (01) ==
LOC: JP.SDS 07:56
PROVIDERS: ATTEND Surgery
DX: R10.9 Unspecified abdominal pain (principal); R19.7 Diarrhea, unspecified; K57.30 Diverticulosis of large intestine without perforation or abscess without bleeding; K64.9 Unspecified hemorrhoids; K63.89 Other specified diseases of intestine; I10 Essential (primary) hypertension; Z90.49 Acquired absence of other specified parts of digestive tract; F17.200 Nicotine dependence, unspecified, uncomplicated; Z91.030 Bee allergy status; Z88.8 Allergy status to other drugs, medicaments and biological substances
CPT/HCPCS: 45330; 74270; J2250; J2405; J2704; J2930; J3010; J3411; J7042; J7120; Q9963